=== PATIENT | female | born 1990 | race Caucasian/White ===

== ENCOUNTER 2019-04-13 18:20 | Outpatient (CLI) | payer OTHER, SELFPAY ==
[2019-04-13 18:57] VITALS: BMI 42.9
[2019-04-13] MEDS: NIFEdipine 30 MG Tablet PO (19:32)
--- NOTE | 2019-04-13 22:25 | OB.TRI.NOTE ---
History of Present Illness Date of Service: 04/13/19 Was patient seen by the physician?: Yes Reason For Visit: R/O PRE E Date of Service: 04/13/19 Final JADA: 05/11/19 Final JADA Source: LMP Gestational age: 36 Weeks and 0 Days History of Present Illness: Patient feels well. Denies headache, blurry vision or RUQ pain. Allergies Penicillins Allergy (Verified 04/13/19 18:58) Hives Sulfa (Sulfonamide Antibiotics) Allergy (Verified 04/13/19 18:58) Hives NST - FHR Rate Baby A Baseline: 130 Variability:: Moderate Accelerations:: 15 x 15 Decelerations:: None NST Reactive:: Yes Uterine Activity:: quiet Impression/Plan 28yo female with chronic hypertension with superimposed preeclampsia 24 hour urine today confirmed diagnosis of preeclampsia. Other labs are normal. Patient with serial BP monitoring show no severe range blood pressures (2 systolic pressures greater than 160 were noted at time of BP cuff malfunction & patient laying on BP cuff thus are not accurate BP's). Patient will monitor her BP at home & call with any BP's greater than 160/110. Also reviewed preE symptoms. Patient will follow-up in the office Monday morning or as needed.
== END 2019-04-13 22:30 | disposition home or self-care (01) ==
LOC: WPOUT 18:29 → WP 18:30
PROVIDERS: Family Provider Family Medicine; PCP Family Medicine; Referring Provider Obstetrics & Gynecology; Visit Provider Obstetrics & Gynecology
DX: O14.93 Unspecified pre-eclampsia, third trimester (principal); Z3A.36 36 weeks gestation of pregnancy
CPT/HCPCS: 36415; 59025; 59050; 99218; G0378

== ENCOUNTER → 2019-04-13 | Outpatient (CLI) | payer OTHER, SELFPAY ==
[2015-11-07 22:20] VITALS: BMI 39.5
[2019-04-13 12:29] LABS: Hematocrit 32.4 % (37-47); Hemoglobin 10.7 g/dl (12.0-15.0); Mean Corpuscular Hgb 25.1 pg (27.0-32.0); Mean Corpuscular Volume 76.1 fL (81-99); Mean Platelet Vol. 8.8 fl (6.2-12.0); Platelet Count 478 K/mm3 (150-450); RBC Distribution Width CV 13.6 % (11.6-14.6); RBC Distribution Width SD 36.5 fl (35.1-43.9); Red Blood Count 4.26 M/mm3 (4.2-5.4); Scan Indicated on CBC? Y/N NO; White Blood Count 8.1 K/mm3 (4.4-11.0)
[2019-04-13 12:35] LABS: ALB/GLOB Ratio 0.6 RATIO (0.9-2.4); AST(SGOT) 23 U/L (15-37); Alanine Aminotransfer ALT/SGPT 19 U/L (13-56); Albumin, Serum 2.6 g/dL (3.2-5.0); Alkaline Phosphatase 149 U/L (45-117); Anion Gap 6 (5-15); BUN 9 mg/dL (7-18); BUN/Creat Ratio 12.3 RATIO (10-20); Calcium,Total 8.5 mg/dL (8.5-10.1); Chloride 111 mmol/L (98-107); Creatinine, Serum 0.73 mg/dL (0.55-1.02); EST Glomerular Filtration Rate 101 mL/min (>60); Est Glom Filt Rate - Afr Amer 123 mL/min (>60); Glucose 81 mg/dL (74-106); Potassium 3.7 mmol/L (3.5-5.1); Protein, Total 6.6 g/dL (6.4-8.2); Sodium Level 138 mmol/L (136-145); Uric Acid 4.5 mg/dL (2.6-6.0)
[2019-04-13 12:53] LABS: 24 Hour Urine Protein 900.5 mg/24HR (<150 MG/24HR); 24HR. UA Prot. Total Volume 4975 mL; Urine Protein (24 Hour) 18.1 mg/dL (<11.9)
== END | disposition home or self-care (01) ==
LOC: LAB 12:02
PROVIDERS: Family Provider Family Medicine; PCP Family Medicine; Referring Provider Advanced Practice Midwife; Visit Provider Advanced Practice Midwife
DX: O16.3 Unspecified maternal hypertension, third trimester (principal); Z3A.35 35 weeks gestation of pregnancy
CPT/HCPCS: 36415; 80053; 84156; 84550; 85027

== ENCOUNTER 2019-04-16 13:10 | Outpatient (CLI) | payer OTHER, SELFPAY ==
[2019-04-16 13:25] VITALS: BMI 41.8
--- NOTE | 2019-04-16 13:32 | OB.TRI.HP_ITS ---
- Problem List (1) Syncope Status: Acute (2) 36 weeks gestation of Status: Acute History of Present Illness Date of Service: 04/16/19 Was patient seen by the physician?: Yes Reason For Visit: Syncope Date of Service: 04/16/19 Final JADA: 05/11/19 Final JADA Source: LMP Gestational age: 36 Weeks and 3 Days History of Present Illness: Patient was just seen in the office for a routine OB visit. At that time she was feeling well and serial BP's were noted to be 140-150's/100. 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 There she states she started to feel generally unwell, clammy, and lightheaded. She was standing and sat down. She states she was told she lost consciousness. She did not fall. She did not hit her head or abdomen. She says this happened in her other pregnancies as well. She currently feels better and denies any symptoms other than feeling drained. Her SBP per EMS report was in the low 100's, and this is a low BP for her given her BP logs at home and checks in the office. She has a h/o gHTN w/ superimposed pre-eclampsia without severe features. She denies CHRISTINA, vision changes, upper abd pain, N/V. No ctx, vb, lof. Good FM. No CP or SOB. Allergies Penicillins Allergy (Verified 04/13/19 18:58) Hives Sulfa (Sulfonamide Antibiotics) Allergy (Verified 04/13/19 18:58) Hives Review of Systems Constitutional: Reports: Weakness, Fatigue HEENT: Denies: Head Aches, Visual Changes Cardiovascular: Denies: Chest Pain Respiratory: Denies: Shortness of Breath Gastrointestinal: Denies: Abdominal Pain Neurological: Denies: Blurred vision, Double vision, Change in Speech, Slurred speech, Confusion, Focal weakness, Headaches, Tremor, Seizures Psychiatric: Denies: Anxiety, Depression Physical Exam General: Alert, Cooperative, No apparent distress HEENT: Atraumatic Cardiovascular: Regular rate Lungs: Normal air movement Abdomen: Soft, Non Tender, Gravid Neurological: Neuro grossly intact Impression/Plan here for observation for syncopal episode in pediatricians office. h/o significant for gHTN with s/i pre-e without severe features. - BP was low per EMS. Pt had lunch recently but states she has not had much to drink today, and feels dehydrated. She is unable to provide a urine sample. She takes her Procardia at night around 6-9 pm. BP's typically are high mild. Will get NST, serial BP checks, and give 1 L IVF bolus. Will reassess after fluid bolus. If she is not feeling well or if BP's remain low, will get EKG and blood work as well. Discussed w/ pt she will need to check her BP at home tonight prior to taking Procardia and instructed her when to call. Otherwise she does have follow up in the office in 3 days.
[2019-04-16] MEDS: Lactated Ringers 1,000 ML 999 ML IV (13:51)
== END 2019-04-16 16:05 | disposition home or self-care (01) ==
LOC: WPOUT 13:17 → WP 13:35
PROVIDERS: Referring Provider Obstetrics & Gynecology; Visit Provider Obstetrics & Gynecology
DX: O26.893 Other specified pregnancy related conditions, third trimester (principal); R55 Syncope and collapse; Z3A.36 36 weeks gestation of pregnancy
CPT/HCPCS: 96360; 96361; 59025; 59050; J7120

== ENCOUNTER 2019-04-19 18:24 | Inpatient (IN) | payer OTHER, SELFPAY ==
[2019-04-19 18:50] VITALS: BMI 42.5
[2019-04-19] MEDS: Lactated Ringers 1,000 ML 50 ML IV (19:10)
[2019-04-19 19:35] LABS: International Normalized Ratio 1.1; Prothrombin Time (Protime)PT. 13.9 SECONDS (11.7-14.9)
[2019-04-19 19:36] LABS: Partial Thromboplast Time 28.2 Seconds (24.1-36.2)
[2019-04-19 19:39] LABS: Hematocrit 33.9 % (37-47); Hemoglobin 11.4 g/dl (12.0-15.0); Mean Corp Hgb Conc 33.6 g/gl (32-36); Mean Corpuscular Hgb 25.1 pg (27.0-32.0); Mean Corpuscular Volume 74.5 fL (81-99); Mean Platelet Vol. 9.4 fl (6.2-12.0); Platelet Count 463 K/mm3 (150-450); RBC Distribution Width CV 13.9 % (11.6-14.6); RBC Distribution Width SD 36.9 fl (35.1-43.9); Red Blood Count 4.55 M/mm3 (4.2-5.4); White Blood Count 8.7 K/mm3 (4.4-11.0)
[2019-04-19 19:45] LABS: Scan Indicated on CBC? Y/N YES- FLAGS NOTED
[2019-04-19] MEDS: 0.9% Normal Saline 100 ML IV.SOLN. INTRA-UTER (19:55)
[2019-04-19 20:19] LABS: AST(SGOT) 15 U/L (15-37); Alanine Aminotransfer ALT/SGPT 14 U/L (13-56); EST Glomerular Filtration Rate 92 mL/min (>60); Est Glom Filt Rate - Afr Amer 111 mL/min (>60); Estimated Creatinine Clearance 87.38 ml/min; Uric Acid 4.6 mg/dL (2.6-6.0)
[2019-04-19 20:22] LABS: ALB/GLOB Ratio 0.6 RATIO (0.9-2.4); AST(SGOT) 19 U/L (15-37); Alanine Aminotransfer ALT/SGPT 14 U/L (13-56); Albumin, Serum 2.6 g/dL (3.2-5.0); Alkaline Phosphatase 181 U/L (45-117); Anion Gap 9 (5-15); BUN 10 mg/dL (7-18); BUN/Creat Ratio 12.8 RATIO (10-20); Calcium,Total 9.2 mg/dL (8.5-10.1); Chloride 109 mmol/L (98-107); Creatinine, Serum 0.78 mg/dL (0.55-1.02); EST Glomerular Filtration Rate 94 mL/min (>60); Est Glom Filt Rate - Afr Amer 114 mL/min (>60); Estimated Creatinine Clearance 89.62 ml/min; Globulin 4.2 g/dL (2.2-4.2); Glucose 94 mg/dL (74-106); Potassium 3.9 mmol/L (3.5-5.1); Protein, Total 6.8 g/dL (6.4-8.2); Sodium Level 138 mmol/L (136-145)
--- NOTE | 2019-04-19 20:32 | HP.PCM_ITS ---
- Problem List (1) Preeclampsia Status: Acute (2) Chronic hypertension affecting Status: Chronic (3) Rh negative state in antepartum period Status: Acute (4) History of delivery Status: Acute (5) Hx successful (vaginal after ), currently Status: Acute (6) 36 weeks gestation of Status: Acute History Date of Admission: 04/19/19 Final JADA: 05/11/19 Final JADA Source: LMP Gestational age: 36 Weeks and 6 Days History of this : This is a 28 year-old, G4, P3003, at 36 weeks 6 days gestational age who presents for IOL for cHTN with superimposed pre-eclampsia with severe features. H/o cHTN on Procardia. Procardia has needed to be increased recently due to severe range BP's in the office. She has had an elevated 24 hr urine protein and p/c ratio. The remained of her pre-e labs have been WNL. Pt has been declining an earlier induction. Pt presented to the office today and had multiple severe range BP's and IOL was recommended. She is asymptomatic and has no CHRISTINA, vision changes, upper abd pain, nausea, vomiting. Here for an IOL for pre-eclampsia with severe features. Medical History: Medical History (Last Updated 04/19/19 @ 20:37 by Kiesha Fregoso DO) History of depression Z87.59, Z86.59 History of hemorrhage Z86.2 PCOS (polycystic ovarian syndrome) E28.2 Allergies Penicillins Allergy (Verified 04/19/19 18:46) Hives Sulfa (Sulfonamide Antibiotics) Allergy (Verified 04/19/19 18:46) Hives Home Medications: Home Medications Vitamin Tablet 1 tab PO DAILY 11/07/15 Nifedipine [Procardia Xl] 60 mg PO DAILY 04/16/19 Aspirin [Aspirin, Baby] 81 mg PO DAILY@0800 04/19/19 Smoking Status: Never smoker Alcohol: None Number of Fetus(es): 1 Heart Tracin/mod armida/+accels/no decels TOCO Analysis: Irritability History Past Pregnancies: Past Pregnancies Delivery Date Name GA/Weeks Outcome Route Weight Gender Labor Length Anesthesia Delivery Location Provider FOB C/S 9lbs 6lbs 7lbs Labs: GBS neg Expected Delivery Method: Review of Systems Eyes: Denies: Blurred vision HEENT: Denies: Head Aches Cardiovascular: Denies: Chest Pain Respiratory: Denies: Shortness of Breath Gastrointestinal: Denies: Abdominal Pain, Nausea, Vomiting Neurological: Denies: Blurred vision, Double vision, Headaches Physical Exam General: Alert, No apparent distress HEENT: Atraumatic Cardiovascular: Regular rate Lungs: Normal air movement Abdomen: Soft, Non Tender, Gravid Neurological: Deep Tendon Reflexes 2+/4 and Symmetrical, Neuro grossly intact HADOOP ANALYST: Normal external genitalia Presentation: Cephalic Cervix Dilation (cm): 1 Assessment/Plan All Active Problems Syncope (Acute) 36 weeks gestation of (Acute) Preeclampsia (Acute) Rh negative state in antepartum period (Acute) History of delivery (Acute) Hx successful (vaginal after ), currently (Acute) This is a 28 year-old, G4, P3, at 36 weeks 6 days gestational age who presents for IOL for cHTN with super imposed pre-eclampsia with severe features. Has had persistent severe range BP's on admission. - Will start mag gtt for seizure prophylaxis - Pre-e labs on admission - Koo and strict intake and output - Cervical koo placed by Clarisa Roche - Once koo is out with start pitocin - Discussed risks and benefits of a TOLAC with pt in detail and consent was signed in the office
[2019-04-19] MEDS: Magnesium Sulfate 20 GM/500 ML BAG IV (20:50)
[2019-04-19 21:13] VITALS: BP 164/104; PULSE 112
[2019-04-19 21:35] VITALS: BP 164/92; PULSE 120
[2019-04-19] MEDS: Oxytocin 30 units/NS 500 ml 30 UNITS/500 ML IV.SOLN IV (23:57)
[2019-04-20] VITALS (10 sets, daily range): BP systolic 84–141; BP diastolic 53–89; PULSE 95–107; RESP 16–18; TEMP 36.2–36.7; O2SAT 97–98
[2019-04-20] MEDS: Lactated Ringers 1,000 ML 50 ML IV ×4 (00:06→23:00)
[2019-04-20] MEDS: Acetaminophen 325 MG Tablet PO (02:31)
[2019-04-20] MEDS: fentaNYL-bupivacaine (epidural) 100 ML BAG EPIDURAL ×2 (03:33→09:33)
[2019-04-20] MEDS: Magnesium Sulfate 20 GM/500 ML BAG IV ×2 (08:50→19:27)
--- NOTE | 2019-04-20 08:55 | PCM.PN.BLA ---
Progress Note AROM performed around 5 am for clear fluid and IUPC placed. Cvx 4.5/t/h, posterior at that time and head well applied to cervix. IUPC wa placed. FSE unable to be placed given how posterior the cvx was. Cvx 5 cm around 1 hour later, and FSE placed. Pt more uncomfortable with ctx's currently and pitocin at 16 mu/min. Has not needed IV blood pressure medication since admission. Continue current management
[2019-04-20] MEDS: Ondansetron 4 MG/2 ML Vial IV ×2 (09:27→18:56)
[2019-04-20] MEDS: Oxytocin 30 units/NS 500 ml 30 UNITS/500 ML IV.SOLN 334 UNITS IV (11:55)
--- NOTE | 2019-04-20 12:16 | PCM.OPRPT ---
Problem List (1) Preeclampsia Status: Acute (2) Chronic hypertension affecting Status: Chronic (3) Rh negative state in antepartum period Status: Acute (4) History of delivery Status: Acute (5) Hx successful (vaginal after ), currently Status: Acute (6) 36 weeks gestation of Status: Acute Report of Operation Date of Procedure: 04/20/19 Pre-Operative Diagnosis: cHTN with superimposed pre-eclampsia with severe features, 37 wk gestation, hx of prior section, history of 2 prior 's Post-Operative Diagnosis: As above Surgery/Procedure Performed:: Description of Surgical Findings:: VMI in OA position. Clear fluid. Normal appearing placenta with a 3 vessel cord. Uterus explored and intact after delivery Type of Anesthesia:: Epidural Special Medications: None Specimen's removed: Placenta Drains: Duong Estimated Blood Loss (mL): 250 Description of Procedure: Patient complete and pushing. Head delivered in OA position, followed by shoulders and body. VMI delivered without any force or delay, and placed on maternal abdomen. Cord was clamped and cut after a 60 sec delay. Placenta delivered intact with fundal massage. Placenta normal appearing with a 3 vessel cord. Uterus explored and no retained products noted, and the prior section incision is intact. Fundus firm and bleeding hemostatic. No perineal or vaginal lacerations noted. Grafts/Implants Used: None - Complications None - Admit VTE Documentation VTE Present on Admission: No VTE Mechan Device Prophylaxis: SCD's VTE Pharm Prophylaxis ordered?: No Vaginal Delivery Maternal Presentation: Medically Indicated Induction Method of Induction: Pitocin, Duong Bulb, Amniotomy Medical Reason for Induction: Gestational Hypertension, Preeclampsia, eclampsia Amniotic Membrane Rupture Type: Artificial Amniotic Fluid Description: Clear Final JADA: 05/11/19 Gestational age: 37 Weeks and 0 Days Date of Procedure: 04/20/19 Surgery/ Procedure Performed: - - delivery Type of Anesthesia: Epidural Placental Delivery Description: Expressed Cord Vessel Description: 3 Vessels Cord Entanglement: None Drain: Duong to straight drain Estimated Blood Loss: 250 A gender: Male (1 minute): 8 (5 minute): 9 Episiotomy Description: None Laceration: None Medications given after delivery: IV Pitocin, - - Mag gtt x 24 hrs Complications: None
[2019-04-20] MEDS: Oxytocin 30 units/NS 500 ml 30 UNITS/500 ML IV.SOLN 167 UNITS IV (12:25)
[2019-04-20] MEDS: Methylergonovine 0.2 MG/ML Ampul IM (12:49)
[2019-04-20] MEDS: Ibuprofen 600 MG Tablet PO (19:06)
[2019-04-20] MEDS: Acetaminophen 500 MG Tablet 1000 MG PO (19:50)
--- NOTE | 2019-04-20 20:13 | NURSING ---
Addendum entered by Irma Carmona 04/20/19 20:16: pt also c/o severe tailbone pain. Dr. Fregoso states she will speak to pt regarding this in the AM when she rounds. she will provide stretches and other options for pt pain relief. will continue to use tylenol or motrin to manage pain at this time. repositioning pt in bed. Original Note: this Rn just spoke with Dr. Fregoso to update her on pt. pt not tolerating magnesium sulfate well with continuous nausea. pt states she just wants to feel well enough to enjoy her baby. Dr. Fregoso given the most recent BPs on pt and she states she is okay with discontinuing mag at 12 hours after delivery. she states to discontinue at 2350 and continue BP q30 min x 4 pressures to monitor for any spike in blood pressure. if pt remains asymptomatic, magnesium is good to be off of pt. will continue to monitor and will inform patient of this change.
[2019-04-21] VITALS (12 sets, daily range): BP systolic 102–149; BP diastolic 57–86; PULSE 91–118; RESP 14–17; TEMP 36.5–36.7; O2SAT 97–99
[2019-04-21] MEDS: Ibuprofen 600 MG Tablet PO ×2 (02:22→13:39)
[2019-04-21] MEDS: 0.9% Saline Lock 10 ML Syringe IV (03:48)
[2019-04-21] MEDS: Acetaminophen 500 MG Tablet 1000 MG PO (07:26)
--- NOTE | 2019-04-21 09:14 | PCM.PN.OB ---
Patient Problems: Active and Suspected Problems (Last Updated 04/19/19 @ 20:37 by Kiesha Fregoso DO) Preeclampsia (Acute) Rh negative state in antepartum period (Acute) History of delivery (Acute) Hx successful (vaginal after ), currently (Acute) Subjective: Pt doing well. She denies nausea or vomiting. Tolerating a reg diet. Ambulating and spont voiding without difficulty. Denies CHRISTINA, vision changes, upper abd pain, CP, SOB, palpitations, leg pain. She passed 2 large clots, and now lochia normal - Physical Exam General: Alert, No apparent distress HEENT: Atraumatic Lungs: - - No increased resp effort Abdomen: Soft, Non Tender, - - FF@U Extremities: No edema, No Calf Tenderness Skin: No rashes Neurological: Neuro grossly intact Psych/Mental Status: Normal Affect, Appropriate Vital Signs Temp Pulse Resp BP Pulse Ox 98 F 95 16 105/57 L 98 04/21/19 03:51 04/21/19 03:51 04/21/19 03:51 04/21/19 03:51 04/20/19 23:00 Oxygen Delivery Method Room Air Weight: 240 lb Body Mass Index (BMI) 42.5 Intake and Output for Last 24 Hours 04/19/19 04/20/19 04/21/19 23:59 23:59 23:59 Intake Total 2545.5 / 2545.5 940 / 940 Output Total 1880 / 1880 555 / 555 Balance 665.5 / 665.5 385 / 385 Medical Necessity - Tobacco Use Smoking Status: Never smoker Assessment/Plan All Active Problems (Last Updated 04/19/19 @ 20:37 by Kiesha Fregoso DO) Syncope (Acute) 36 weeks gestation of (Acute) Preeclampsia (Acute) Rh negative state in antepartum period (Acute) History of delivery (Acute) Hx successful (vaginal after ), currently (Acute) PPD#1 s/p for cHTN with superimposed pre-eclampsia with severe features - Pt requested to stop mag gtt early yesterday given her symptoms on magnesium. Mag gtt was continued for 12 hours , and discussed risk of seizure with pt and the recommendation is to continue the mag gtt for 24 hrs. No symptoms of pre-e. BP's are normal. Will get pre-e labs today. Continue to monitor BP's. If she has any pre-e symptoms or severe BP's, will restart mag gtt - Otherwise doing well - Dispo: Routine care. Anticipate d/c tomorrow
--- NOTE | 2019-04-21 11:04 | NURSING ---
0830- Patient up to bathroom passed clot 250 cc, then right after passed another large clot 650 cc. Bleeding small and fundus firm @ U. Patient states feeling better. VS stable. Dr. Fregoso in to see patient.
[2019-04-21 12:18] LABS: Hematocrit 22.3 % (37-47); Hemoglobin 7.3 g/dl (12.0-15.0); Mean Corp Hgb Conc 32.7 g/gl (32-36); Mean Corpuscular Hgb 25.3 pg (27.0-32.0); Mean Corpuscular Volume 77.2 fL (81-99); Mean Platelet Vol. 8.5 fl (6.2-12.0); Platelet Count 371 K/mm3 (150-450); RBC Distribution Width CV 14.5 % (11.6-14.6); Red Blood Count 2.89 M/mm3 (4.2-5.4); White Blood Count 9.6 K/mm3 (4.4-11.0)
[2019-04-21 12:19] LABS: Scan Indicated on CBC? Y/N NO
[2019-04-21 12:37] LABS: ALB/GLOB Ratio 0.6 RATIO (0.9-2.4); AST(SGOT) 15 U/L (15-37); Alanine Aminotransfer ALT/SGPT 11 U/L (13-56); Alkaline Phosphatase 117 U/L (45-117); Anion Gap 5 (5-15); BUN 12 mg/dL (7-18); BUN/Creat Ratio 13.1 RATIO (10-20); Calcium,Total 7.6 mg/dL (8.5-10.1); Chloride 110 mmol/L (98-107); Creatinine, Serum 0.92 mg/dL (0.55-1.02); EST Glomerular Filtration Rate 78 mL/min (>60); Est Glom Filt Rate - Afr Amer 94 mL/min (>60); Estimated Creatinine Clearance 75.98 ml/min; Globulin 3.2 g/dL (2.2-4.2); Glucose 107 mg/dL (74-106); Potassium 3.8 mmol/L (3.5-5.1); Protein, Total 5.2 g/dL (6.4-8.2); Sodium Level 139 mmol/L (136-145)
[2019-04-21] MEDS: Prenatal Vits Tablet 1 TABLET PO (13:39)
--- NOTE | 2019-04-21 13:50 | NURSING ---
Dr. Fregoso called and updated on all lab work. Plan to monitor patient at this time d/t patient being asymptomatic and VS stable. Repeat CBC ordered for 04-22-19 @ 0500. Will update Dr. Fregoso for any further bleeding or patient symptoms.
[2019-04-22] VITALS (16 sets, daily range): BP systolic 112–140; BP diastolic 62–90; PULSE 103–120; RESP 16–107; TEMP 36.4–38.4; O2SAT 95–99
[2019-04-22] MEDS: Ibuprofen 600 MG Tablet PO (01:48)
[2019-04-22 07:40] LABS: Hematocrit 18.4 % (37-47); Mean Corp Hgb Conc 32.6 g/gl (32-36); Mean Corpuscular Hgb 25.5 pg (27.0-32.0); Mean Corpuscular Volume 78.3 fL (81-99); Mean Platelet Vol. 8.3 fl (6.2-12.0); Platelet Count 397 K/mm3 (150-450); RBC Distribution Width CV 14.3 % (11.6-14.6); RBC Distribution Width SD 38.7 fl (35.1-43.9); Red Blood Count 2.35 M/mm3 (4.2-5.4); White Blood Count 8.3 K/mm3 (4.4-11.0)
[2019-04-22 07:41] LABS: Scan Indicated on CBC? Y/N NO
--- NOTE | 2019-04-22 08:31 | PCM.PN.OB ---
Patient Problems: Active and Suspected Problems (Last Updated 04/19/19 @ 20:37 by Kiesha Fregoso DO) Preeclampsia (Acute) Rh negative state in antepartum period (Acute) History of delivery (Acute) Hx successful (vaginal after ), currently (Acute) Subjective: Patient doing well. She feels fatigued. She denies lightheadedness, dizziness, CP, SOB, leg pain. Tolerating a diet without N/V. Ambulating and spontaneously voiding without difficulty. Denies CHRISTINA, vision changes, RUQ pain. She feels ready to go home today - Physical Exam General: Alert, No apparent distress HEENT: Atraumatic Lungs: - - No increased resp effort Abdomen: Soft, Non Tender, Non-Distended, - - FF@U Extremities: No Calf Tenderness Skin: No rashes Neurological: Neuro grossly intact Psych/Mental Status: Normal Affect, Appropriate Vital Signs Temp Pulse Resp BP Pulse Ox 97.5 F L 111 H 18 119/71 98 04/22/19 01:45 04/22/19 01:45 04/22/19 01:45 04/22/19 01:45 04/21/19 19:30 Oxygen Delivery Method Room Air Weight: 240 lb Body Mass Index (BMI) 42.5 Intake and Output for Last 24 Hours 04/20/19 04/21/19 04/22/19 23:59 23:59 23:59 Intake Total 2545.5 / 2545.5 940 / 940 Output Total 1880 / 1880 955 / 955 Balance 665.5 / 665.5 -15 / -15 Laboratory Tests Past 24 Hrs 04/21/19 04/21/19 04/22/19 12:00 12:00 07:25 WBC 9.6 8.3 RBC 2.89 L 2.35 L Hgb 7.3 L 6.0 L Hct 22.3 L 18.4 L MCV 77.2 L 78.3 L MCH 25.3 L 25.5 L MCHC 32.7 32.6 RDW 14.5 14.3 RDW Differential 41.0 38.7 Plt Count 371 397 MPV 8.5 8.3 Sodium 139 Potassium 3.8 Chloride 110 H Carbon Dioxide 24.0 Anion Gap 5 BUN 12 Creatinine 0.92 Estim Creat Clear Calc 75.98 Est GFR (MDRD) Af Amer 94 Est GFR (MDRD) Non-Af 78 BUN/Creatinine Ratio 13.1 Glucose 107 H Calcium 7.6 L Total Bilirubin 0.20 AST 15 ALT 11 L Alkaline Phosphatase 117 Total Protein 5.2 L Albumin 2.0 L Globulin 3.2 Albumin/Globulin Ratio 0.6 L Medical Necessity - Tobacco Use Smoking Status: Never smoker Assessment/Plan All Active Problems (Last Updated 04/19/19 @ 20:37 by Kiesha Fregoso DO) Syncope (Acute) 36 weeks gestation of (Acute) Preeclampsia (Acute) Rh negative state in antepartum period (Acute) History of delivery (Acute) Hx successful (vaginal after ), currently (Acute) PPD#2 s/p - Hgb 6 this AM. Pt feeling well other than fatigue. Discussed r/b/a of a blood transfusion and patient gave consent for a blood transfusion. She has a h/ hemorrhage. Will give 2 units PRBC's and recheck CBC 1 hour after. She states her vaginal bleeding has been minimal. Prior section scar was intact on uterine exploration after delivery - BP's normal currently, will not restart Procardia at this time. Instructed pt to check BP at home once daily, and she will return to the office later this week for a BP check. No pre-e symptoms at this time - Doing well - Dispo: D/c home later today after 2 units PRBC's and CBC
--- NOTE | 2019-04-22 08:38 | DCINST_ITS ---
Discharge Diet: No Restrictions Discharge Activity: Return to Normal Activity, May Shower May shower in (days): 0 May resume sexual activity in: 6 weeks Weight Bearing Status: Full weight bearing Lifting Restrictions: None Call your doctor if you observe: Fever of 101 or Higher, Inability to urinate, Inability to have a bowel movement, Using more than one pad per hour, Shortness of breath, Dizziness, Fainting spells, Chest pain, Increased palpitations (irregular heartbeat), Calf discomfort, Uncontrolled pain Instructions: After a Vaginal Additional Instructions: If you experience any of the following, contact your healthcare provider. * Bleeding that soaks a pad every hour for 2 hours * Fever 100.4 or higher * Unrelieved incision or abdominal pain * Swelling, redness, discharge or bleeding from your incision or episiotomy site * Your incision begins to separate * Problems urinating (including inability to urinate or burning while urinating). * Visual changes * Severe headache * Flu-like symptoms * Pain or redness in one of both of your breasts * Pain, warmth, tenderness or swelling in your legs, especially the calf area * Frequent nausea and vomiting * Symptoms of depression or anxiety If you experience any of the following, call 911 or go to the nearest Emergency Room. * Chest pain * Problems breathing * Seizure activity * Partial or complete paralysis of a body part, slurred speech, weakness or drooping of the face, or a sudden inability to walk or hold your balance Allergies/Adverse Reactions: Allergies Penicillins Allergy (Verified 04/19/19 18:46) Hives Sulfa (Sulfonamide Antibiotics) Allergy (Verified 04/19/19 18:46) Hives Medications to take at Discharge Vitamin Tablet 1 tab PO DAILY 11/07/15 Nifedipine [Procardia Xl] 60 mg PO DAILY 04/16/19 Aspirin [Aspirin, Baby] 81 mg PO DAILY@0800 04/19/19 Ferrous Sulfate 325 mg PO DAILY #60 tab 04/22/19 The following prescriptions were given: Ferrous Sulfate 325 mg PO DAILY #60 tab Prescription Printed Please Follow Up With: Kiesha Fregoso DO When: 1 week for BP check and CBC Test Results: Test results from this visit will be discussed in further detail at your follow- up appointment, if applicable. Proposed Discharge Date: 04/22/19
[2019-04-22] MEDS: Acetaminophen 500 MG Tablet 1000 MG PO (10:29)
[2019-04-22] MEDS: DiphenhydrAMINE 25 MG Capsule PO (10:29)
[2019-04-22] MEDS: Prenatal Vits Tablet 1 TABLET PO (10:29)
--- NOTE | 2019-04-22 13:40 | NURSING ---
Pt receiving 2 units of prbc, the 2nd unit is infusing at this time. pt resting with no c/o voiced
[2019-04-22] MEDS: Senna/Docusate Sodium 1 Tablet PO (15:20)
[2019-04-22 16:21] LABS: Hematocrit 24.2 % (37-47); Mean Corp Hgb Conc 33.1 g/gl (32-36); Mean Corpuscular Hgb 26.5 pg (27.0-32.0); Mean Corpuscular Volume 80.1 fL (81-99); Mean Platelet Vol. 8.3 fl (6.2-12.0); Platelet Count 337 K/mm3 (150-450); RBC Distribution Width CV 15.2 % (11.6-14.6); RBC Distribution Width SD 44.1 fl (35.1-43.9); Red Blood Count 3.02 M/mm3 (4.2-5.4); White Blood Count 8.2 K/mm3 (4.4-11.0)
[2019-04-22 16:22] LABS: Scan Indicated on CBC? Y/N NO
== END 2019-04-22 16:30 | disposition home or self-care (01) | DRG 806 ==
PROVIDERS: Admitting Provider Obstetrics & Gynecology; Referring Provider Obstetrics & Gynecology; Visit Provider Obstetrics & Gynecology
DX: O60.14X0 Preterm labor third trimester with preterm delivery third trimester, not applicable or unspecified (principal); O72.2 Delayed and secondary postpartum hemorrhage; Z37.0 Single live birth; O14.14 Severe pre-eclampsia complicating childbirth; Z3A.36 36 weeks gestation of pregnancy
CPT/HCPCS: 59025; 59050; 80053; 82565; 84450; 84460; 84550; 85027; 85610; 85730; 86850; 86900; 86920; 99218; J7120; P9016; A4216; G0378; J2405